=== PATIENT | male | born 1975 | race Caucasian/White ===

== ENCOUNTER 2021-01-02 10:34 | Emergency (ER) | payer BC, SELFPAY ==
[2021-01-02 10:46] VITALS: BP 130/80; PULSE 83; RESP 22; TEMP 36.6; O2SAT 97
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
[2021-01-02] MEDS: KETOROLAC (*BKC) 60 MG/2 ML VIAL IM (11:23)
== END 2021-01-02 11:30 | disposition home or self-care (01) ==
PROVIDERS: Emergency Provider Nurse Practitioner Family
DX: M54.2 Cervicalgia (principal); M25.59 Pain in other specified joint; E78.00 Pure hypercholesterolemia, unspecified; I10 Essential (primary) hypertension; F17.210 Nicotine dependence, cigarettes, uncomplicated
CPT/HCPCS: 96372; 99203; G0463; J1885

== ENCOUNTER 2024-07-14 09:44 | Outpatient (CLI) | payer OTHER, SELFPAY ==
[2024-07-14 10:20] LABS: Basophils Percent Auto 0.5 % (0.2-1.2); Eosinophils Absolute Auto 0.2 K/mm3 (0-0.3); Eosinophils Percent Auto 2.1 % (0-4.4); Hematocrit 41.6 % (42.0-52.0); Hemoglobin 14.1 g/dL (14.0-18.0); Immature Granulocyte Absolute 0.04 K/mm3 (0.00-0.031); Immature Granulocyte Percent A 0.5 % (0-0.5); Lymphocytes Absolute Auto 3.16 K/mm3 (0.9-3.2); Lymphocytes Percent Auto 37.5 % (18.3-44.2); Mean Corpuscular HGB Conc 33.9 g/dl (32-36); Mean Corpuscular Hemoglobin 31.5 pg (26-34); Mean Corpuscular Volume 92.9 fl (80-100); Mean Platelet Volume 8.7 fl (7.4-10.4); Monocytes Absolute Auto 0.6 K/mm3 (0.1-0.6); Neutrophils Absolute Auto 4.4 K/mm3 (1.3-6.7); Neutrophils Percent Auto 52.4 % (45.5-73.1); Platelet Count Result 231 k/mm3 (150-375); Red Blood Count 4.48 M/mm3 (4.6-6.20); Red Cell Distribution Width 13.2 % (11.5-14.5); White Blood Count 8.4 K/mm3 (4.5-10.0)
[2024-07-14 10:30] LABS: INR 0.9
[2024-07-14 10:48] LABS: Iron 92 ug/dL (49-181)
[2024-07-14 10:58] LABS: Percent Iron Saturation 32 % (20-50)
[2024-07-14 11:24] LABS: Hepatitis B Surface Antigen Negative (Negative)
[2024-07-14 11:30] LABS: HAV RESULT Negative (Negative); Hepatitis B Core IgM Result Negative (Negative)
[2024-07-14 11:42] LABS: Hepatitis B Surface Anti Res Negative; Hepatitis C Virus Antibody Negative (Negative)
[2024-07-16 02:37] LABS: GGT 38 U/L (3-95)
[2024-07-16 03:08] LABS: Alpha-1-Antitrypsin, QN 159 mg/dL (83-199); Ceruloplasmin 24 mg/dL (14-30)
[2024-07-16 08:04] LABS: Hepatitis A Antibody Total NON-REACTIVE (NON-REACTIVE)
[2024-07-17 15:38] LABS: Immunoglobulin A 130 mg/dL (47-310); TTG IGA AB <1.0 U/mL
[2024-07-17 15:49] LABS: Alpha Fetoprotein Tumor Marker 2.6 ng/mL (<6.1)
[2024-07-17 19:39] LABS: LKM 1 Antibody <=20.0 U (<=20.0)
[2024-07-17 20:48] LABS: Actin Antibody (IgG) <20 U (<20)
[2024-07-21 14:28] LABS: ALT 45 U/L (9-46); Alpha-2-Macroglobulin 177 mg/dL (106-279); Apolipoprotein A1 171 mg/dL (94-176); Fibrosis Stage F0; GGT 39 U/L (3-95); Haptoglobin 216 mg/dL (43-212); Necroinflammat Act Grade A0-A1; Reference ID 5237934; Total Bilirubin 0.4 mg/dL (0.2-1.2)
== END 2024-07-14 09:45 | disposition home or self-care (01) ==
LOC: ANHLAB 09:45
PROVIDERS: Visit Provider Nurse Practitioner Family
DX: E66.9 Obesity, unspecified (principal); K76.0 Fatty (change of) liver, not elsewhere classified; R74.8 Abnormal levels of other serum enzymes
CPT/HCPCS: 36415; 80074; 81596; 82103; 82105; 82390; 82728; 82784; 82977; 83520; 83540; 83550; 85025; 85610; 86038; 86039; 86364; 86376; 86706; 86708

== ENCOUNTER 2025-03-06 11:21 | Outpatient (CLI) | payer BC, SELFPAY ==
--- OUTSIDE RECORDS SUMMARY | 2025-03-06 11:30 | XMS_ITS | Clinical Summary ---
Author Organization [facility] Address [address] [place] [address] Care Team Providers Care Dry Pan Charger Name Role Phone Mindy Lyons ENVIRONMENTAL PROFESSIONAL-DRAMATIC CRITIC Primary Care Provider Source Comments [facility],non-owned Affiliates and Associated Physician Practices is amultiple site organization consisting of ambulatory clinics and hospital sitesin [place], [place], [place] and [place]. This disclosure is being madepursuant to the Care Everywhere program and may not contain all information available regarding this patient. Last updated 18.[facility] Active Problems Problem Noted Date Diagnosed Date Nonalcoholic fatty liver disease 08/07/2024 Social History Tobacco Use Types Packs/Day Years Used Date Smoking Tobacco: Never Assessed Sex and Gender Information Value Date Recorded Sex Assigned at Not on file Legal Sex Male 5:34 AM PHLEBOTOMY COORDINATOR Gender Identity Not on file Sexual Orientation Not on file Plan of Treatment Health Maintenance Due Date Last Done Comments COLOGUARD (AGES 45-75) - COL ON CA SCREENING 1975 CT COLONOGRAPHY - COLON CA SCREENING 1975 FIT - COLON CA SCREENING 1975 FLEX SIG - COLON CA SCREENING 1975 LIPID TESTING 1975 HIV SCREENING 1990 DTAP/TDAP/TD VACCINES (1 - Tdap) 1994 HEPATITIS B VACCINE (1 of 3 - 19+ 3-dose series) 1994 COVID-19 VACCINE (1 - 2023-2 5 season) 2024 DEPRESSION SCREENING 08/13/2024 PNEUMOCOCCAL VACCINE 50+ (1 of 1 - PCV) 2025 ZOSTER VACCINE (1 of 2) 2025 INFLUENZA VACCINE (#1) 2025 2, 08/02/2021 COLON MONITORING 09/03/2033 09/03/2023, 09/03/2023 COLONOSCOPY - COLON CA SCREENING 09/03/2033 09/03/2023, 09/03/2023 Colorectal Cancer Screening 09/03/2033 HEPATITIS C SCREENING Completed 04/17/2024 HIB VACCINE Aged Out No longer eligi ble based on patient's age to complete this topic HPV VACCINE Aged Out No longer eligi ble based on patient's age to complete this topic MENINGOCOCCAL (Group B) VACCINE SHARED DECISION-MAKING Aged Out No longer eligible based on patient's age to complete this topic MENINGOCOCCAL GROUPS A/C/Y/W VACCINE Aged Out No longer eligible b ased on patient's age to complete this topic Insurance Care Teams Dry Pan Charger Relationship Specialty Start Date End Date Mindy Lyons, KAUR-DRAMATIC CRITIC [address] [place] [address] PCP - General Nurse Practitioner 07/23/24
--- OUTSIDE RECORDS SUMMARY | 2025-03-06 11:30 | XMS_ITS | Clinical Summary ---
Author Organization [facility] Address [address] [place] [address] Phone Care Team Providers Care Railroad Emergency Services Manager Name Role Phone Kain Mcneal MD Primary Care Provider [phone] Allergies No known active allergies Medications lisinopril (PRINIVIL) 20 mg tablet Take 20 mg by mouth daily. Active HYDROcodone-acet aminophen (NORCO) 5-325 mg tablet Take 1 Tab by mouth every 4 hours as needed for Pain, Moderate. Active SUMAtriptan (IMITREX) 100 mg tablet may repeat in 2 hours; max dose 200mg in 24 hours. 12 Tab 2 01/28/2015 Active tiZANidine (ZANAFLEX) 2 mg Tablet 1 po qhs for 1 wk, 2 po qhs for 1 wk, then 3 po qhs.. 90 Tab 2 01/28/2015 Active Active Problems Problem Noted Date Diagnosed Date Back pain 01/28/2015 Family History Medical History Relation Name Comments Diabetes Father Stroke Maternal Grandmother Hypertension Mother Relation Name Status Comments Father Maternal Grandmother Mother Social History Tobacco Use Types Packs/Day Years Used Date Smoking Tobacco: Never Smokeless Tobacco: Never Alcohol Use Standard Drinks/Week Comments No 0 (1 standard drink = 0.6 oz pur e alcohol) Sex and Gender Information Value Date Recorded Sex Assigned at Not on file Legal Sex Male 9:14 AM DIRECTOR CREDIT RISK Gender Identity Not on file Sexual Orientation Not on file Last Filed Vital Signs Vital Sign Reading Time Taken Comments Blood Pressure 130/82 01/28/2015 12:54 PM CDT Pulse 77 01/28/2015 12:54 PM CDT Temperature - - Respiratory Rate - - Oxygen Saturation 97% 01/28/2015 12:54 PM CDT Inhaled Oxygen Concentration - - Weight 145.2 kg (320 lb) 01/28/2015 12:54 PM CDT Height 190.5 cm (6' 3) 01/28/2015 12:54 PM CDT Body Mass Index 40 01/28/2015 12:54 PM CDT Plan of Treatment Health Maintenance Due Date Last Done Comments DTAP/TDAP/TD VACCINES (1 - Tdap) 1994 HEPATITIS B VACCINES (1 of 3 - 19+ 3-dose series) 01/12 COLORECTAL SCREENING 02/03/2020 Colorectal Cancer Screening 02/03/2020 FIT-DNA Q 3 years 02/03/2020 FIT/FOBT Q 1 year 02/03/2020 Flex Sig/CT Colonography Q 5 years 02/03/2020 ZOSTER VACCINE (1 of 2) 2025 INFLUENZA VACCINE (#1) 2025 Insurance [employer] BLUE ACCESS/TRUE BLUE PPO Care Teams Railroad Emergency Services Manager Relationship Specialty Start Date End Date Kain Mcneal MD PCP - General 07/30/15
--- OUTSIDE RECORDS SUMMARY | 2025-03-06 11:30 | XMS_ITS | Clinical Summary ---
Author Organization [facility] Address [address] [place] [address] Care Team Providers Care Motivational Speaker Name Role Phone Serena Mindy Dory PEÑA Primary Care Provider [phone] Allergies No known active allergies Medications famotidine (PEPCID) 20 MG tabletIndications: Gastroesophageal reflux disease without esophagitis Take 1 tablet (20 mg total) by mouth 2 (two) times daily. 60 tablet 5 04/17/20 24 Active meloxicam (MOBIC) 15 MG tabletIndications: Low back pain potentially associated with radiculopathy,Neck pain on left side TAKE 1 TABLET(15 MG) BY MOUTH DAILY 90 tablet 1 10/01/19 25 Active gabapentin (NEURONTIN) 300 MG capsuleIndications :Radiculopathy, lumbar region TAKE 1 CAPSULE(30 0 MG) BY MOUTH TWICE DAILY 180 capsule 1 12/23/19 25 Active lisinopril (PRINIVIL) 20 MG tabletIndications: Primary hypertension TAKE 1 TABLET(20 MG) BY MOUTH DAILY 90 tablet 1 12/23/19 25 Active HYDROcodone-acetam inophen (NORCO) 5-325 MG tabletIndications: Acute Pain < 7 Day Supply Take 1 tablet by mouth every 6 (six) hours as needed for Pain. Indication s: Acute Pain < 7 Day Supply 15 tablet 02/05/20 25 Active simvastatin (ZOCOR) 40 MG tabletIndications: Mixed hyperlipidemia TAKE 1 TABLET(40 MG) BY MOUTH DAILY 90 tablet 1 02/17/20 25 Active simvastatin (ZOCOR) 40 MG tabletIndications: Mixed hyperlipidemia TAKE 1 TABLET(40 MG) BY MOUTH DAILY 90 tablet 1 08/25/19 25 025 Discontinued Active Problems Problem Noted Date Diagnosed Date Screening for colon cancer 03/12/2023 Overview (03/12/2023): Added automatically from request for surgery [id number] Family hx of colon cancer 03/12/2023 Overview (03/12/2023): Added automatically from request for surgery [id number] Cervical radiculopathy 06/30/2022 Overview (06/30/2022): Added automatically from request for surgery [id number] Precordial pain 06/21/2022 Spinal stenosis, lumbar ovidio on without neurogenic claudication 09/02/2021 Thoracic radiculopathy 08/01/2021 Paraspinal mass 08/01/2021 Radiculopathy, lumbar region 08/01/2021 Primary hypertension 01/12/2020 Hyperlipidemia 01/12/2020 Current every day smoker 01/12/2020 BMI 39.0-39.9,adult 01/12/2020 Encounters Date Type Department Care Team Description 02/03/2025 Telephone [facility] Family & Internal Medicine [address] [address] Mindy Lyons, CASEY Medication Request from Last 3 Months Immunizations Immunization Administration Dates Next Due Fluzone 6 Months+ Quad (0.5 mL Prefilled Syringe) 06/27/2022 Influenza Adult (Generic) 08/02/2021,08/2017(Deferred: Patient Refused) Pneumococcal (Prevnar 20) 11/09/2022 Tdap (Adacel) 11/09/2022 Family History Medical History Relation Comments Diabetes Father Hypertension Father stroke Maternal Grandmother Colon Cancer Mother Hypertension Mother Relation Status Comments Father Maternal Grandmother Mother Alive Social History Tobacco Use Types Packs/Day Years Used Date Smoking Tobacco: Every Day Cigarettes 0.5 26 Started: 03/12/1999 Passive Smoke Exposure: Current Smokeless Tobacco: Never Tobacco Cessation:Ready to Q uit: No; Counseling Given: Yes Comments:Provider to children's counselor. 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 Not on file Not on file Last Filed Vital Signs Vital Sign Reading Time Taken Comments Blood Pressure 118/68 04/17/2024 9:48 AM CDT Pulse 80 04/17/2024 9:48 AM CDT Temperature 36.5 C (97.7 F) 04/17/2024 9:48 AM CDT Respiratory Rate 16 04/17/2024 9:48 AM CDT Oxygen Saturation 96% 04/17/2024 9:48 AM CDT Inhaled Oxygen Concentration - - Weight 148.6 kg (327 lb 8 oz) 04/17/2024 9:48 AM CDT Height 188 cm (6' 2) 04/17/2024 9:48 AM CDT Body Mass Index 42.05 04/17/2024 9:48 AM CDT Plan of Treatment Upcoming Encounters Date Type Department Care Team (Late st Contact Info) Description 03/11/2025 7:00 AM CDT Office Visit [facility] Family & Internal Medicine [id number] [place] [phone] Mindy Lyons APNP [facility] [place] [address] Health Maintenance Due Date Last Done Comments Hepatitis B Vaccines (1 of 3 - 19+ 3-dose series) 1994 COVID-19 Vaccine ( - 2023-2 5 season) 2024 08/02/2021, 11/08/2020 PHQ-2 (Physician Ubly) 08/13/2024 09/18/2023 Zoster Vaccines (1 of 2) 2025 Annual Physical 04/17/2025 04/17/2024, 03/15/2022 DTaP, Tdap and Td Vaccines ( 2 - Td or Tdap) 11/09/2032 11/09/2022 Colorectal Cancer Screening Colonoscopy (10 Years) 09/03/2033 09/03/2023, 09/03/2023 Pneumococcal Vaccine: 50+ Years Completed 11/09/2022 Hepatitis C Completed 04/17/2024 Meningococcal B Vaccine Aged Out No l onger eligible based on patient's age to complete this topic Meningococcal Vaccine Aged Out No vicente marisa eligible based on patient's age to complete this topic RSV Immunizations Under 20 Months Aged Out No longer eligible b ased on patient's age to complete this topic Procedures Procedure Name Priority Date/Time Associated Diagnosis Comments HEPATITIS C ANTIBODY Routine 04/17/2024 1:17 PM CDT Need for hepatitis C screening test COLONOSCOPY Routine 09/03/2023 9:22 AM SAP ANALYST from Last 3 Months or Most Recently Relevant to Health Maintenance Results * HEPATITIS C AB ([facility] ONLY) (04/17/2024 1:17 PM CDT) HEPATITIS C AB NON-REACTI VE NON-REACT NIC 04/17/2024 7:37 PM CDT [facility] Comment: ANTIBODIES TO HCV NOT DETECTED. DOES NOT EXCLUDE THE POSSIBILITY OF EXPOSURE TO HCV. 04/17/2024 1:17 PM CDT Mindy PEÑA LABORATORY Final Resul t [facility] [address] [place] [address], [id number] from Last 3 Months or Most Recently Relevant to Health Maintenance Insurance Care Teams Motivational Speaker Relationship Specialty Start Date End Date Mindy Lyons APNP [address] [place] [id number] PCP - General NURSE PRACTITIONER 01/12/20
--- OUTSIDE RECORDS SUMMARY | 2025-03-06 11:30 | XMS_ITS | Encounter Summary ---
Author Organization [facility] Address [address] [place] [id number] Care Team Providers Care Accountant Clerk Name Role Phone SerenaMindy Dory PEÑA Primary Care Provider [phone] Encounter Details Date Type Department Care Team (Late st Contact Info) Description 06/30/2022 Prep for Procedure [facility] [place] [address] [id number] Cyndi Thayer NP [address] [facility] [address] [place] [phone] [phone] (Work) Social History Tobacco Use Types Packs/Day Years Used Date Smoking Tobacco: Every Day Cigarettes 0.5 25 Smokeless Tobacco: Never Alcohol Use Standard Drinks/Week Comments Yes 0 (1 standard drink = 0.6 oz pur e alcohol) few beers couple times a month PHQ-2 Answer Date Recorded PHQ-2 Score - If the patient scores above 3, please move on to questions 3-9 0 03/11/2021 Sex and Gender Information Value Date Recorded Sex Assigned at Not on file Legal Sex Male 11:17 PM SKIN FITTER Gender Identity Not on file Sexual Orientation Not on file 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 No / Unsure 06/30/2022 12:24 PM SKIN FITTER documented as of this encounter Functional Status * Calculated C-SSRS Risk Score (Lifetime/Recent) Answer Date of Assessment Author Status No Risk Indicated 06/30/2022 12:54 PM Dio Benoit RN Active * [place] Suicide Severity Rating Scale (Screener/Recent Self-Report) Question Answer Date of Assessment Author Status 1. Wish to be (Past 1 Month) No 06/30/2022 12:54 PM Wilfredo Benoit RN A ctive 2. Non-Specific Active Suicidal Thoughts (Past 1 Month) No 06/30/2022 12:54 PM Wilfredo Benoit RN A ctive 6. Suicidal Behavior (Lifetime) No 06/30/2022 12:54 PM Wilfredo Benoit RN A ctive documented as of this encounter Plan of Treatment Upcoming Encounters Date Type Department Care Team (Late st Contact Info) Description 03/11/2025 7:00 AM CDT Office Visit [facility] Family & Internal Medicine [address] [phone] Mindy Lyons APNP [address] [place] [phone] documented as of this encounter Visit Diagnoses Not on filedocumented in this encounter Additional Health Concerns Assessment Noted Time PHQ-9 Depression Total Score: 2 03/11/20 21 1:00 PM CDT documented as of this encounter Care Teams Accountant Clerk Relationship Specialty Start Date End Date Mindy Lyons APNP [address] [place] [id number] PCP - General NURSE PRACTITIONER 01/12/20 documented as of this encounter
[2025-03-06 11:44] LABS: Hematocrit 41.9 % (42.0-52.0); Hemoglobin 14.5 g/dL (14.0-18.0); Mean Corpuscular HGB Conc 34.6 g/dl (32-36); Mean Corpuscular Hemoglobin 31.3 pg (26-34); Mean Corpuscular Volume 90.5 fl (80-100); Platelet Count Result 228 k/mm3 (150-375); Red Blood Count 4.63 M/mm3 (4.6-6.20); White Blood Count 8.9 K/mm3 (4.5-10.0)
[2025-03-06 12:30] LABS: Alanine Aminotransferase 58 U/L (6-50); Albumin Level 4.6 g/dL (3.5-5.1); Alkaline Phosphatase 85 U/L (38-126); Anion Gap 11 mmol/L (4-12); Aspartate Amino Transferase 39 U/L (17-59); Bilirubin,Total 0.4 mg/dL (0.2-1.3); Blood Urea Nitrogen 11 mg/dL (9-20); Calcium 9.6 mg/dL (8.4-10.2); Carbon Dioxide 23 mmol/L (22-30); Chloride 101 mmol/L (98-107); Estimated Glomerular Filt Rate > 60; Glucose 96 mg/dL (65-110); Potassium 4.0 mmol/L (3.4-5.0); Sodium 135 mmol/L (137-145); Total Protein 7.6 g/dL (6.3-8.2)
[2025-03-06 13:11] LABS: INR 0.9; Prothrombin Time 12.6 Seconds (11.1-14.7)
== END 2025-03-06 11:22 | disposition home or self-care (01) ==
PROVIDERS: PCP Registered Nurse; Visit Provider Nurse Practitioner Family
DX: R74.8 Abnormal levels of other serum enzymes (principal); K76.0 Fatty (change of) liver, not elsewhere classified
CPT/HCPCS: 36415; 80053; 85027; 85610